=== PATIENT | female | born 1990 | race Two or more races ===

== ENCOUNTER 2022-09-27 05:12 | Day surgery (SDC) | payer OTHER ==
[~2022-09-27] VITALS: Ht 157.5 cm; Wt 74.8 kg
[~2022-09-27 05:12] MED LIST: IBU400 MG PO; PANADOL EXTRA500 MG PO
[2022-09-27] MEDS ORDERED: MIRALAX17 GM PO (08:27)
[2022-09-27] MEDS ORDERED: TRAMADOL HCL50 MG PO (08:27)
[2022-09-27] MEDS ORDERED: TYLENOL ARTHRI650 MG PO (08:27)
== END 2022-09-27 11:05 | disposition home or self-care (01) ==
LOC: CIR.AMB 05:12
PROVIDERS: ATTEND Surgery
DX: K80.00 Calculus of gallbladder with acute cholecystitis without obstruction (principal); R59.0 Localized enlarged lymph nodes; Z20.822 Contact with and (suspected) exposure to COVID-19; Z88.8 Allergy status to other drugs, medicaments and biological substances